=== PATIENT | male | born 1945 | race Hispanic/Latino ===

== ENCOUNTER 2018-06-19 19:57 | Emergency (ER) | payer MEDICARE, OTHER ==
[2018-06-19 21:01] LABS: Absolute Lymphocytes (CBC) 0.9 K/uL (0.7-4.9); Absolute Monocytes 0.5 K/uL (0.1-1.3); Absolute Neutrophil 4.1 K/uL (1.8-8.0); Basophils % 0.4 % (0-1.3); Eosinophils % 2.3 % (0-4.4); Hematocrit 44.4 % (39.6-49.0); Monocytes % 8.7 % (3.3-12.3)
[2018-06-19 21:11] LABS: Protime INR 1.1
[2018-06-19 21:13] LABS: Barbiturates NEGATIVE (NEGATIVE); Benzodiazepines POSITIVE (NEGATIVE); Cocaine NEGATIVE (NEGATIVE); METHAMPHETAM NEGATIVE (NEGATIVE); Methadone NEGATIVE (NEGATIVE); Opiates NEGATIVE (NEGATIVE); Phencyclidine NEGATIVE (NEGATIVE); THC Cannibis NEGATIVE (NEGATIVE)
[2018-06-19 21:38] LABS: ALT/SGPT 19 U/L (12-78); AST/SGOT 37 U/L (15-37); Albumin 3.9 g/dL (3.4-5.0); Alkaline Phosphatase 99 U/L (45-117); BUN Blood Urea Nitrogen 32 mg/dL (7-18); Bicarbonate 26 mmol/L (21-32); Bilirubin Direct 0.2 mg/dL (0-0.2); Bilirubin Total 0.6 mg/dL (0.2-1.0); Glucose Level 122 mg/dL (74-106); Potassium 4.1 mmol/L (3.5-5.1); Protein, Total 7.4 g/dL (6.4-8.2); Sodium Level 143 mmol/L (136-145)
[2018-06-19 21:42] LABS: Urine Blood NEGATIVE (NEG); Urine Glucose NEGATIVE (NEG); Urine Protein 2+ (NEG); Urine Specific Gravity >1.030 (1.005-1.030)
--- NOTE | 2018-06-19 23:24 | EDPHYS ---
Physician Documentation [facility] Name: Demetrius Hassan Age: 73 yrs Sex: Male : 1945 Arrival Date: 06/19/2018 Time: 20:01 Bed 20 Private MD: Ramona Lopez F ED Physician Andrei Tafoya HPI: 06/19 21:00 This 73 yrs old Male presents to ER via Wheelchair with complaints of Psych pm1 Problem. 21:00 The patient presents to the emergency department with Aggressive behavior. Onset: The pm1 symptoms/episode began/occurred 1 year(s) ago. Past psychiatric history: Prior diagnosis: no previous psychiatric diagnosis known, Psychiatric medications include: none, Primary psychiatric physician: the patient does not have a primary psychiatric physician. Associated signs and symptoms: The patient has no apparent associated signs or symptoms. Severity of symptoms: in the emergency department the symptoms have improved Pain is currently a 0 / 10. The patient has experienced similar episodes in the past, multiple times. The patient has not recently seen a physician, the patient's primary care provider is Dr. Lopez. Patient with aggressive behavior in the late afternoon or early evening. Patient reports that sometimes he sees people at those time. Patient is not homicidal or suicidal. Historical: - Allergies: 20:15 No Known Allergies; aj - Home Meds: 20:15 benazepril 20 mg Oral tab 1 tab once daily [Active]; carbidopa-levodopa 25-250 mg Oral aj tab 1 tab 3 times per day [Active]; fenofibrate 130 mg Oral tab 1 cap once daily [Active]; pramipexole 1.5 mg Oral tab 1 tab 3 times per day [Active]; unknown "nerve" medication [Active]; - PMHx: 20:15 Hypertension; left arm weakness; Parkinsons; aj - PSHx: 20:15 Appendectomy; Hernia repair; left Foot; Pelvic Surgery; Left Shoulder; aj - Immunization history:: Adult Immunizations up to date. - Social history:: Smoking status: Patient/guardian denies using tobacco. - Ebola Screening: : Patient negative for fever greater than or equal to 101.5 degrees Fahrenheit, and additional compatible Ebola Virus Disease symptoms Patient denies exposure to infectious person Patient denies travel to an Ebola-affected area in the 21 days before illness onset No symptoms or risks identified at this time. ROS: 21:00 Constitutional: Negative for fever, chills, and weight loss, Eyes: Negative for injury, pm1 pain, redness, and discharge, ENT: Negative for injury, pain, and discharge, Neck: Negative for injury, pain, and swelling, Cardiovascular: Negative for chest pain, palpitations, and edema, Respiratory: Negative for shortness of breath, cough, wheezing, and pleuritic chest pain, Abdomen/GI: Negative for abdominal pain, nausea, vomiting, diarrhea, and constipation, Back: Negative for injury and pain, : Negative for injury, bleeding, discharge, and swelling, MS/Extremity: Negative for injury and deformity, Skin: Negative for injury, rash, and discoloration, Neuro: Negative for headache, weakness, numbness, tingling, and seizure. 21:00 Psych: Positive for visual hallucinations, Negative for anxiety, depression, drug dependence, alcohol dependence, auditory hallucinations, homicidal ideation, insomnia, suicide gesture, suicidal ideation. Exam: 21:00 Constitutional: This is a well developed, well nourished patient who is awake, alert, pm1 and in no acute distress. Head/Face: Normocephalic, atraumatic. Eyes: Pupils equal round and reactive to light, extra-ocular motions intact. Lids and lashes normal. Conjunctiva and sclera are non-icteric and not injected. Cornea within normal limits. Periorbital areas with no swelling, redness, or edema. ENT: Nares patent. No nasal discharge, no septal abnormalities noted. Tympanic membranes are normal and external auditory canals are clear. Oropharynx with no redness, swelling, or masses, exudates, or evidence of obstruction, uvula midline. Mucous membranes moist. Neck: Trachea midline, no thyromegaly or masses palpated, and no cervical lymphadenopathy. Supple, full range of motion without nuchal rigidity, or vertebral point tenderness. No Meningismus. Chest/axilla: Normal chest wall appearance and motion. Nontender with no deformity. No lesions are appreciated. Cardiovascular: Regular rate and rhythm with a normal S1 and S2. No gallops, murmurs, or rubs. Normal PMI, no JVD. No pulse deficits. Respiratory: Lungs have equal breath sounds bilaterally, clear to auscultation and percussion. No rales, rhonchi or wheezes noted. No increased work of breathing, no retractions or nasal flaring. Abdomen/GI: Soft, non-tender, with normal bowel sounds. No distension or tympany. No guarding or rebound. No evidence of tenderness throughout. Back: No spinal tenderness. No costovertebral tenderness. Full range of motion. Skin: Warm, dry with normal turgor. Normal color with no rashes, no lesions, and no evidence of cellulitis. MS/ Extremity: Pulses equal, no cyanosis. Neurovascular intact. Full, normal range of motion. 21:00 Neuro: Orientation: is normal, Motor: moves all fours, Sensation: is normal, no obvious gross deficits. Vital Signs: 20:15 BP 114 / 59; Pulse 73; Resp 20; Temp 97.7; Pulse Ox 97% on R/A; Weight 85.28 kg; Height aj 5 ft. 6 in. (167.64 cm); 21:08 BP 105 / 64; Pulse 72; Resp 18 S; Pulse Ox 97% on R/A; cc3 22:45 BP 101 / 53; Pulse 59; Resp 16 S; Pulse Ox 99% on R/A; cc3 23:15 BP 110 / 55; Pulse 62; Resp 17 S; Pulse Ox 100% on R/A; cc3 20:15 Body Mass Index 30.34 (85.28 kg, 167.64 cm) aj MDM: 20:29 Patient medically screened. pm1 23:22 Data reviewed: vital signs. Data interpreted: Pulse oximetry: on room air is 97 %. pm1 Interpretation: normal. Counseling: I had a detailed discussion with the patient and/or guardian regarding: the historical points, exam findings, and any diagnostic results supporting the discharge/admit diagnosis, lab results, the need for outpatient follow up, to return to the emergency department if symptoms worsen or persist or if there are any questions or concerns that arise at home. 06/19 20:29 Order name: Acetaminophen; Complete Time: 22:06 pm1 06/19 20:29 Order name: Basic Metabolic Panel; Complete Time: 22:06 pm1 06/19 20:29 Order name: CBC with Diff; Complete Time: 22:06 pm1 06/19 20:29 Order name: ETOH Level; Complete Time: 22:06 pm1 06/19 20:29 Order name: Hepatic Function; Complete Time: 22:06 pm1 06/19 20:29 Order name: PT-INR; Complete Time: 22:06 pm1 06/19 20:29 Order name: Ptt, Activated; Complete Time: 22:06 pm1 06/19 20:29 Order name: Salicylate; Complete Time: 22:06 pm1 06/19 20:29 Order name: Urine Drug Screen; Complete Time: 22:06 pm1 06/19 20:29 Order name: EKG; Complete Time: 20:30 pm1 06/19 20:29 Order name: EKG - Nurse/Tech; Complete Time: 20:37 pm1 06/19 20:29 Order name: IV Saline Lock; Complete Time: 20:54 pm1 06/19 20:29 Order name: Labs collected and sent; Complete Time: 20:54 pm1 06/19 20:48 Order name: Urine Dipstick--Ancillary (enter results); Complete Time: 22:06 mw2 06/19 20:29 Order name: Urine Dipstick-Ancillary (obtain specimen); Complete Time: 20:37 pm1 Administered Medications: No medications were administered Disposition: 06/20 07:57 Co-signature as Attending Physician, Andrei Tafoya MD I agree with the assessment and prakash plan of care. Disposition: 06/19/18 23:24 Discharged to Home. 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 - Condition is Stable. - Discharge Instructions: Confusion, Alzheimer Disease Caregiver Guide. - Medication Reconciliation Form, Thank You Letter form. - Follow up: Emergency Department; When: As needed; Reason: Worsening of condition. Follow up: Ramona Lopez MD; When: 2 - 3 days; Reason: Recheck today's complaints, Continuance of care, Re-evaluation by your physician. - Problem is new. - Symptoms have improved. Signatures: Dispatcher [employer] EDLuzma Burgos RN RN aj Anderson, Corey, MD MD cha Marinas, Patrick, TOOL REPAIRER BENCH TOOL REPAIRER BENCH pm1 Kathleen Courtney cc3 Corrections: (The following items were deleted from the chart) 06/19 23:54 23:24 06/19/2018 23:24 Discharged to Home. 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 Condition is Stable. Forms are Medication Reconciliation Form, Thank You Letter, Antibiotic Education, Prescription Opioid Use. Follow up: Emergency Department; When: As needed; Reason: Worsening of condition. Follow up: Ramona Lopez; When: 2 - 3 days; Reason: Recheck today's complaints, Continuance of care, Re-evaluation by your physician. Problem is new. Symptoms have improved. pm1
--- NOTE | 2018-06-19 23:24 | ER ---
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 I aj called the police and they said there is nothing they could do because he didn't hurt anyone and the kind of Parkinson's he has makes him hallucinate. I want him to have a mental health evaluation.". Transition of care: patient was not received from another setting of care. Onset of symptoms was June 19, 2018. Risk Assessment: Do you want to hurt yourself or someone else? Patient reports no desire to harm self or others. Initial Sepsis Screen: Does the patient meet any 2 criteria? No. Patient's initial sepsis screen is negative. Does the patient have a suspected source of infection? No. Patient's initial sepsis screen is negative. Care prior to arrival: None. 20:12 Method Of Arrival: Wheelchair aj 20:12 Acuity: JOHANNA 2 aj Triage Assessment: 20:15 General: Appears in no apparent distress. comfortable, Behavior is calm, cooperative, aj appropriate for age. Pain: Denies pain. Neuro: Level of Consciousness is awake, alert, obeys commands, Oriented to person, place, time, situation, Appropriate for age. Respiratory: Airway is patent Respiratory effort is even, unlabored, Respiratory pattern is regular, symmetrical. : Parent/caregiver report the patient having urinary frequency. Derm: Skin is intact, is healthy with good turgor, Skin is pink, warm \\T\\ dry. normal. Historical: - Allergies: 20:15 No Known Allergies; aj - Home Meds: 20:15 benazepril 20 mg Oral tab 1 tab once daily [Active]; carbidopa-levodopa 25-250 mg Oral aj tab 1 tab 3 times per day [Active]; fenofibrate 130 mg Oral tab 1 cap once daily [Active]; pramipexole 1.5 mg Oral tab 1 tab 3 times per day [Active]; unknown "nerve" medication [Active]; - PMHx: 20:15 Hypertension; left arm weakness; Parkinsons; aj - PSHx: 20:15 Appendectomy; Hernia repair; left Foot; Pelvic Surgery; Left Shoulder; aj - Immunization history:: Adult Immunizations up to date. - Social history:: Smoking status: Patient/guardian denies using tobacco. - Ebola Screening: : Patient negative for fever greater than or equal to 101.5 degrees Fahrenheit, and additional compatible Ebola Virus Disease symptoms Patient denies exposure to infectious person Patient denies travel to an Ebola-affected area in the 21 days before illness onset No symptoms or risks identified at this time. Screenin:20 Abuse screen: Denies threats or abuse. Denies injuries from another. Nutritional cc3 screening: No deficits noted. Tuberculosis screening: No symptoms or risk factors identified. Fall Risk Ambulatory Aid- None/Bed Rest/Nurse Assist (0 pts). Gait- Weak (10 pts.). Mental Status- Overestimates/Forgets Limitations (15 pts.). Assessment: 20:20 General: see triage assessment. cc3 21:08 Reassessment: Patient appears in no apparent distress at this time. Patient and/or cc3 family updated on plan of care and expected duration. Pain level reassessed. Patient is alert, oriented x 3, equal unlabored respirations, skin warm/dry/pink. 22:18 Reassessment: Patient appears in no apparent distress at this time. Patient and/or cc3 family updated on plan of care and expected duration. Pain level reassessed. Patient is alert, oriented x 3, equal unlabored respirations, skin warm/dry/pink. 23:20 Reassessment: Patient appears in no apparent distress at this time. Patient and/or cc3 family updated on plan of care and expected duration. Pain level reassessed. Patient is alert, oriented x 3, equal unlabored respirations, skin warm/dry/pink. 23:35 Reassessment: ARELI Anthony discharged the patient home, no prescription given. IV cannula cc3 removed and patient left ER vitally stable by wheelchair escorted by me and the patient's family. Vital Signs: 20:15 BP 114 / 59; Pulse 73; Resp 20; Temp 97.7; Pulse Ox 97% on R/A; Weight 85.28 kg; Height aj 5 ft. 6 in. (167.64 cm); 21:08 BP 105 / 64; Pulse 72; Resp 18 S; Pulse Ox 97% on R/A; cc3 22:45 BP 101 / 53; Pulse 59; Resp 16 S; Pulse Ox 99% on R/A; cc3 23:15 BP 110 / 55; Pulse 62; Resp 17 S; Pulse Ox 100% on R/A; cc3 20:15 Body Mass Index 30.34 (85.28 kg, 167.64 cm) ED Course: 20:01 Patient arrived in ED. am2 20:01 Ramona Lopez MD is Private Physician. am2 20:14 Triage completed. aj 20:15 Arm band placed on right wrist. Patient placed in an exam room. aj 20:20 Kathleen Courtney is Primary Nurse. cc3 20:20 Patient has correct armband on for positive identification. Placed in gown. Bed in low cc3 position. Call light in reach. Side rails up X2. Pulse ox on. NIBP on. 20:28 Raj Rosen NP is PHCP. pm1 20:28 Andrei Tafoya MD is Attending Physician. pm1 20:45 Inserted saline lock: 20 gauge in right antecubital area, using aseptic technique. cc3 Blood collected. 23:22 Ramona Lopez MD is Referral Physician. pm1 23:35 No provider procedures requiring assistance completed. IV discontinued, intact, cc3 bleeding controlled, No redness/swelling at site. Pressure dressing applied. Administered Medications: No medications were administered Outcome: 23:24 Discharge ordered by . pm1 23:35 Discharged to home via wheelchair, with family. cc3 23:35 Condition: stable 23:35 Discharge instructions given to patient, family, Instructed on discharge instructions, follow up and referral plans. Demonstrated understanding of instructions, follow-up care. 23:54 Patient left the ED. cc3 Signatures: Luzma Hyde, RN RN Raj Jenkins NP MATERIAL PROCESSOR pm1 Luzma Ma am2 Kathleen Courtney cc3
[2018-06-20 01:33] VITALS: TEMP 97.7
[2018-06-20 01:44] VITALS: BP 110/55; O2SAT 100
--- NOTE | 2018-06-20 08:10 | EKG ---
Test Date: 2018-05-19 Test Time: 20:37:27 Visual Communications Instructor: RR MEASUREMENT RESULTS: Intervals: Rate: 73 CO: 184 QRSD: 82 QT: 376 QTc: 414 [place]: P: 50 CO: 184 QRS: -34 T: 3 INTERPRETIVE STATEMENTS: Normal sinus rhythm Left axis deviation Minimal voltage criteria for LVH, may be normal variant Abnormal ECG Compared to ECG 02/23/2017 00:52:22 Left-axis deviation now present Left ventricular hypertrophy now present Electronically Signed On 06-20-18 08:08:43 [employer] DR[employer] by Brant Vega
== END 2018-06-19 23:54 | disposition home or self-care (01) ==
LOC: ER 19:57
DX: R41.0 Disorientation, unspecified (principal); I10 Essential (primary) hypertension; G20 Parkinson's disease
CPT/HCPCS: 36415; 80048; 80076; 80307; 80320; 80329; 81003; 85025; 85610; 85730; 93005; 99284

== ENCOUNTER 2018-08-09 07:31 | Emergency (ER) | payer MEDICARE ==
[2018-08-09 08:22] LABS: Absolute Monocytes 0.7 K/uL (0.1-1.3); Absolute Neutrophil 5.2 K/uL (1.8-8.0); Basophils % 0.3 % (0-1.3); Eosinophils % 2.2 % (0-4.4); Hematocrit 47.4 % (39.6-49.0); Lymphocytes % 13.9 % (15.3-44.8); MPV 7.6 fL (7.6-11.3); Monocytes % 10.1 % (3.3-12.3); RBC Red Blood Cell Count 5.38 M/uL (4.33-5.43)
[2018-08-09 08:34] LABS: Urine Blood NEGATIVE (NEG); Urine Glucose NEGATIVE (NEG); Urine Protein NEGATIVE (NEG); Urine Specific Gravity 1.015 (1.005-1.030); Urine pH 5.5 (5.0-7.0)
[2018-08-09 08:44] LABS: Bilirubin Total 1.1 mg/dL (0.2-1.0); Potassium 4.1 mmol/L (3.5-5.1); Protein, Total 7.8 g/dL (6.4-8.2)
--- NOTE | 2018-08-09 09:18 | RAD REPORT ---
EXAM DESCRIPTION: CT - Chest Abdomen Pelvis W Cont - 08/09/2018 8:56 am CLINICAL HISTORY: Chest and abdominal pain status post fall COMPARISON: CT chest September 22, 2016 TECHNIQUE: Computed axial tomography of the chest, abdomen and pelvis was obtained. 100 cc Isovue-30 0 was administered intravenously. Oral contrast was not requested. This limits evaluation of bowel. All CT scans are performed using dose optimization technique as appropriate and may include automated exposure control or mA/KV adjustment according to patient size. FINDINGS: Minimally displaced fracture involves the right posterior ninth rib. Moderately displaced fracture involves the right posterior tenth rib. Mildly displaced fracture involves right posterior e leventh rib. A small right pleural effusion. Minimal right lower lobe atelectasis. A pneumothorax is not noted. A pulmonary contusion is not seen. A mediastinal hematoma is not present. The liver, spleen, pancreas, adrenals, kidneys and bladder do not demonstrate a traumatic injury. A Hardnig catheter is present within the bladder. Fatty liver. Renal cysts. IVC filter in place. Postsurgical changes involve pelvic bones. Prostate gland is enlarged. Small umbilical hernia IMPRESSION: Mildly to moderately displaced fractures involving the posterior ninth, tenth and eleven th right ribs. A pneumothorax is not seen No acute traumatic injury involving the abdomen/pelvis
[2018-08-09] MEDS ORDERED: ONDANSETRON 4 MG/2 ML VIAL ONE (09:48)
[2018-08-09] MEDS ORDERED: NA CHLORIDE 0.9% 500 ML ONE (09:48)
[2018-08-09] MEDS ORDERED: MORPHINE 4 MG/ML SYR ONE (09:48)
[2018-08-09 09:49] LABS: Urine Bacteria NONE SEEN /HPF (NONE SEEN); Urine Culture Reflex Order NOT NEEDED; Urine RBC NONE SEEN /HPF (NONE SEEN)
--- NOTE | 2018-08-09 10:49 | EDPHYS ---
Physician Documentation [facility] Name: Demetrius Hassan Age: 73 yrs Sex: Male : 1945 Arrival Date: 08/09/2018 Time: 07:37 Bed 8 Private MD: ED Physician Tutu Squires HPI: 08/09 08:27 This 73 yrs old Male presents to ER via EMS with complaints of Fall Injury, pm1 Back Pain. 08:27 Details of fall: The patient fell from an upright position, while walking. Onset: The pm1 symptoms/episode began/occurred yesterday. Associated injuries: The patient sustained right mid back. The patient has not experienced similar symptoms in the past. The patient has not recently seen a physician. Patient was walking and lost his balance due to Parkinson's disease. Landed on right side and reports pain to right flank area. No headache, head injury, neck pain, or LOC. Patient reports inability to urinate since fall injury. No fever. No N/V/D. Historical: - Allergies: 07:41 No Known Allergies; bp - Home Meds: 07:41 benazepril 20 mg Oral tab 1 tab once daily [Active]; carbidopa-levodopa 25-250 mg Oral bp tab 1 tab 3 times per day [Active]; fenofibrate 130 mg Oral tab 1 cap once daily [Active]; pramipexole 1.5 mg Oral tab 1 tab 3 times per day [Active]; - PMHx: 07:41 Hypertension; left arm weakness; Parkinsons; bp - Immunization history:: Adult Immunizations up to date. - Social history:: Smoking status: Patient/guardian denies using tobacco. - Ebola Screening: : Patient negative for fever greater than or equal to 101.5 degrees Fahrenheit, and additional compatible Ebola Virus Disease symptoms Patient denies exposure to infectious person Patient denies travel to an Ebola-affected area in the 21 days before illness onset No symptoms or risks identified at this time. ROS: 08:27 Constitutional: Negative for fever, chills, and weight loss, Eyes: Negative for injury, pm1 pain, redness, and discharge, ENT: Negative for injury, pain, and discharge, Neck: Negative for injury, pain, and swelling, Cardiovascular: Negative for chest pain, palpitations, and edema, Respiratory: Negative for shortness of breath, cough, wheezing, and pleuritic chest pain, Abdomen/GI: Negative for abdominal pain, nausea, vomiting, diarrhea, and constipation. 08:27 MS/Extremity: Negative for injury and deformity, Skin: Negative for injury, rash, and discoloration, Neuro: Negative for headache, weakness, numbness, tingling, and seizure. 08:27 Back: Positive for flank pain, on the right. 08:27 : Positive for difficulty urinating, Negative for penile discharge, penile pain, testicular pain Exam: 08:27 Constitutional: This is a well developed, well nourished patient who is awake, alert, pm1 and in no acute distress. Head/Face: Normocephalic, atraumatic. Eyes: Pupils equal round and reactive to light, extra-ocular motions intact. Lids and lashes normal. Conjunctiva and sclera are non-icteric and not injected. Cornea within normal limits. Periorbital areas with no swelling, redness, or edema. ENT: Nares patent. No nasal discharge, no septal abnormalities noted. Tympanic membranes are normal and external auditory canals are clear. Oropharynx with no redness, swelling, or masses, exudates, or evidence of obstruction, uvula midline. Mucous membranes moist. Neck: Trachea midline, no thyromegaly or masses palpated, and no cervical lymphadenopathy. Supple, full range of motion without nuchal rigidity, or vertebral point tenderness. No Meningismus. Chest/axilla: Normal chest wall appearance and motion. Nontender with no deformity. No lesions are appreciated. Cardiovascular: Regular rate and rhythm with a normal S1 and S2. No gallops, murmurs, or rubs. Normal PMI, no JVD. No pulse deficits. Respiratory: Lungs have equal breath sounds bilaterally, clear to auscultation and percussion. No rales, rhonchi or wheezes noted. No increased work of breathing, no retractions or nasal flaring. Abdomen/GI: Soft, non-tender, with normal bowel sounds. No distension or tympany. No guarding or rebound. No evidence of tenderness throughout. 08:27 Skin: Warm, dry with normal turgor. Normal color with no rashes, no lesions, and no evidence of cellulitis. MS/ Extremity: Pulses equal, no cyanosis. Neurovascular intact. Full, normal range of motion. 08:27 Back: pain, that is moderate, of the right mid back, normal spinal alignment noted, vertebral tenderness, is not appreciated. 08:27 : Bladder: distension, that is mild. 08:27 Neuro: Orientation: is normal, Motor: is normal, moves all fours. Vital Signs: 07:41 BP 190 / 124; Pulse 92; Resp 18; Temp 97.8; Pulse Ox 96% ; Weight 85.28 kg; Height 5 bp ft. 7 in. (170.18 cm); 08:19 BP 151 / 83; Pulse 80; Resp 16; Pulse Ox 97% ; bp 09:00 BP 156 / 59; Pulse 71; Resp 16; Pulse Ox 100% ; bp 10:00 BP 115 / 53; Pulse 55; Resp 14; Pulse Ox 99% ; bp 10:48 BP 97 / 53; Pulse 53; Resp 14; Pulse Ox 98% ; bp 12:00 BP 124 / 74; Pulse 58; Resp 16; Pulse Ox 100% ; bp 07:41 Body Mass Index 29.44 (85.28 kg, 170.18 cm) bp MDM: 07:40 Patient medically screened. pm1 08:27 Data reviewed: vital signs. Data interpreted: Pulse oximetry: on room air is 100 %. pm1 Interpretation: normal. 10:05 Counseling: I had a detailed discussion with the patient and/or guardian regarding: the pm1 historical points, exam findings, and any diagnostic results supporting the discharge/admit diagnosis, lab results, radiology results, the need for further work-up and treatment in the hospital. 10:18 Physician consultation: Ramona Lopez MD was called at 10:19, was contacted at 10:19, pm1 regarding admission, patient's condition. 10:19 Physician consultation: Ramona Lopez MD and will see patient in office, Sunday. pm1 Discussed patient's fall injury with 3 fractured right ribs, right lung atelectasis, right lung pleural effusion, urinary retention due to BPH and need for admission for pain management, incentive spirometry, and evaluation surgery. Dr. Lopez does not want to admit the patient because the patient does not meet admission criteria and he will see the patient in the office on Sunday. 08/09 07:42 Order name: CBC with Diff; Complete Time: 08:25 pm1 08/09 07:42 Order name: CMP; Complete Time: 08:47 pm1 08/09 07:42 Order name: Chest Abdomen Pelvis W Con CT; Complete Time: 09:20 pm1 08/09 07:42 Order name: Creatinine for Radiology; Complete Time: 08:47 pm1 08/09 07:42 Order name: Urine Microscopic Only; Complete Time: 09:50 pm1 08/09 08:14 Order name: Urine Dipstick--Ancillary (enter results); Complete Time: 08:47 eb 08/09 07:42 Order name: Bladder Scanner; Complete Time: 07:50 pm1 08/09 07:42 Order name: IV Saline Lock; Complete Time: 08:14 pm1 08/09 07:42 Order name: Urine Dipstick-Ancillary (obtain specimen); Complete Time: 08:14 pm1 08/09 10:36 Order name: INCENTIVE SPIROMETRY pm1 08/09 10:40 Order name: RC INCENTIVE SPIROMETRY [facility] 08/09 08:04 Order name: Harding; Complete Time: 08:06 pm1 08/09 11:05 Order name: Leg Bag; Complete Time: 12:07 pm1 Administered Medications: 09:30 Drug: morphine 4 mg Route: IVP; Site: right antecubital; bp 12:11 Follow up: Response: Pain is decreased bp 09:30 Drug: Zofran 4 mg Route: IVP; Site: right antecubital; bp 12:11 Follow up: Response: Pain is decreased bp 09:30 Drug: NS 0.9% 500 ml Route: IV; Rate: bolus; Site: right antecubital; bp 12:10 Follow up: IV Status: Completed infusion; IV Intake: 500ml bp Disposition: 15:16 Co-signature as Attending Physician, Tutu Squires MD. rn Disposition: 08/09/18 10:49 Discharged to Home. Impression: Multiple fractures of ribs, right side, Retention of urine, Enlarged prostate, Other slipping, tripping and stumbling and falls, Atelectasis, Pleural effusion, not elsewhere classified. - Condition is Stable. - Discharge Instructions: Atelectasis, Adult, Harding Catheter Care, Adult, Pleural Effusion, Rib Fracture, Acute Urinary Retention, Male, Incentive Spirometer. - Prescriptions for Tylenol- Codeine #3 300-30 mg Oral Tablet - take 2 tablets by ORAL route every 6 hours As needed; 20 tablet. - Medication Reconciliation Form, Thank You Letter, Antibiotic Education, Prescription Opioid Use form. - Follow up: Emergency Department; When: As needed; Reason: Worsening of condition. Follow up: Ramona Lopez MD; When: 3 days; Reason: Recheck today's complaints, Continuance of care, Re-evaluation by your physician. - Problem is new. - Symptoms have improved. Signatures: Dispatcher [employer] EDMS Tutu Squires MD MD rn Raj Rosen HVAC SALES ENGINEER HVAC SALES ENGINEER pm1 Darian Avalos RN RN bp Corrections: (The following items were deleted from the chart) 10:49 10:49 08/09/2018 10:49 Discharged to Home. Impression: Multiple fractures of ribs, pm1 right side; Retention of urine; Enlarged prostate; Other slipping, tripping and stumbling and falls. Condition is Stable. Forms are Medication Reconciliation Form, Thank You Letter, Antibiotic Education, Prescription Opioid Use. Follow up: Emergency Department; When: As needed; Reason: Worsening of condition. Follow up: Ramona Lopez; When: 3 days; Reason: Recheck today's complaints, Continuance of care, Re-evaluation by your physician. Problem is new. Symptoms have improved. pm1 14:18 10:49 08/09/2018 10:49 Discharged to Home. Impression: Multiple fractures of ribs, bp right side; Retention of urine; Enlarged prostate; Other slipping, tripping and stumbling and falls; Atelectasis; Pleural effusion, not elsewhere classified. Condition is Stable. Forms are Medication Reconciliation Form, Thank You Letter, Antibiotic Education, Prescription Opioid Use. Follow up: Emergency Department; When: As needed; Reason: Worsening of condition. Follow up: Ramona Lopez; When: 3 days; Reason: Recheck today's complaints, Continuance of care, Re-evaluation by your physician. Problem is new. Symptoms have improved. pm1
--- NOTE | 2018-08-09 10:49 | ER ---
Nurse's Notes [facility] Name: Demetrius Hassan Age: 73 yrs Sex: Male : 1945 Arrival Date: 08/09/2018 Time: 07:37 Bed 8 Private MD: Diagnosis: Multiple fractures of ribs, right side;Retention of urine;Enlarged prostate;Other slipping, tripping and stumbling and falls;Atelectasis;Pleural effusion, not elsewhere classified Presentation: 08/09 07:39 Presenting complaint: EMS states: FALL Y/D WITH BACK PAIN AND URINARY URGENCY. bp Transition of care: patient was not received from another setting of care. Onset of symptoms was August 08, 2018. Risk Assessment: Do you want to hurt yourself or someone else? Patient reports no desire to harm self or others. Initial Sepsis Screen: Does the patient meet any 2 criteria? No. Patient's initial sepsis screen is negative. Does the patient have a suspected source of infection? No. Patient's initial sepsis screen is negative. Care prior to arrival: None. 07:39 Method Of Arrival: EMS: [facility] bp 07:39 Acuity: JOHANNA 3 bp Triage Assessment: 07:41 General: Appears in no apparent distress. uncomfortable, Behavior is cooperative, bp appropriate for age, anxious. Pain: Complains of pain in low back area. EENT: No deficits noted. Neuro: Level of Consciousness is awake, alert, obeys commands, Oriented to person, place, time, situation, Appropriate for age. Cardiovascular: No deficits noted. Respiratory: Airway is patent Respiratory effort is even, unlabored, Respiratory pattern is regular, symmetrical. GI: No signs and/or symptoms were reported involving the gastrointestinal system. : Reports inability to void, urgency. Derm: No deficits noted. Musculoskeletal: Circulation, motion, and sensation intact. Range of motion: intact in all extremities. Historical: - Allergies: 07:41 No Known Allergies; bp - Home Meds: 07:41 benazepril 20 mg Oral tab 1 tab once daily [Active]; carbidopa-levodopa 25-250 mg Oral bp tab 1 tab 3 times per day [Active]; fenofibrate 130 mg Oral tab 1 cap once daily [Active]; pramipexole 1.5 mg Oral tab 1 tab 3 times per day [Active]; - PMHx: 07:41 Hypertension; left arm weakness; Parkinsons; bp - Immunization history:: Adult Immunizations up to date. - Social history:: Smoking status: Patient/guardian denies using tobacco. - Ebola Screening: : Patient negative for fever greater than or equal to 101.5 degrees Fahrenheit, and additional compatible Ebola Virus Disease symptoms Patient denies exposure to infectious person Patient denies travel to an Ebola-affected area in the 21 days before illness onset No symptoms or risks identified at this time. Screenin:16 Abuse screen: Denies threats or abuse. Denies injuries from another. Nutritional bp screening: No deficits noted. Tuberculosis screening: No symptoms or risk factors identified. Fall Risk Fall in past 12 months (25 points). Secondary diagnosis (15 points) impaired mobility, IV access (20 points). Ambulatory Aid- Crutches/Cane/Walker (15 pts). Gait- Weak (10 pts.). Mental Status- Oriented to own ability (0 pts). Total Andrade Fall Scale indicates High Risk Score (45 or more points). Fall prevention measures have been instituted. Side Rails Up X 2 Placed Close to Nursing Station Frequent Obs/Assessments Occuring As available patient and family educated on Fall Prevention Program and Strategies. Assessment: 07:41 General: SEE TRIAGE NOTE. bp 07:50 Reassessment: BLADDER SCANNER 566ML. bp 10:02 Reassessment: ALL CURRENT ORDERS COMPLETED, MAI PATENT AND DRAINING TO GRAVITY. bp 10:50 Reassessment: PT RESTING QUIETLY, ADMIT IN PROCESS. bp 12:08 Reassessment: ADMIT DECLINED BY PCP. PT D/C HOME WITH LEG BAG. TRANSPORT PENDING. bp 13:34 Reassessment: UNABLE TO D/C VIA W/C VAN, PT UNABLE TO BEAR WEIGHT. AMBULANCE D/C bp PENDING. 14:17 Reassessment: PT BROWN WITH EMS. bp Vital Signs: 07:41 BP 190 / 124; Pulse 92; Resp 18; Temp 97.8; Pulse Ox 96% ; Weight 85.28 kg; Height 5 bp ft. 7 in. (170.18 cm); 08:19 BP 151 / 83; Pulse 80; Resp 16; Pulse Ox 97% ; bp 09:00 BP 156 / 59; Pulse 71; Resp 16; Pulse Ox 100% ; bp 10:00 BP 115 / 53; Pulse 55; Resp 14; Pulse Ox 99% ; bp 10:48 BP 97 / 53; Pulse 53; Resp 14; Pulse Ox 98% ; bp 12:00 BP 124 / 74; Pulse 58; Resp 16; Pulse Ox 100% ; bp 07:41 Body Mass Index 29.44 (85.28 kg, 170.18 cm) bp ED Course: 07:37 Patient arrived in ED. bp 07:40 Triage completed. bp 07:40 Raj Rosen NP is PHCP. pm1 07:40 Tutu Squires MD is Attending Physician. pm1 07:41 Arm band placed on. bp 07:51 Darian Avalos, MARANDA is Primary Nurse. bp 08:05 Mai cath inserted, using sterile technique, 16 Fr., by ms, balloon inflated, to bp gravity drainage, urine specimen collected. returned clear yellow urine. Patient tolerated well. 850 CC INITIAL OUTPUT. Inserted saline lock: 20 gauge in right antecubital area, using aseptic technique. Blood collected. 08:13 Urine collected: Mai catheter specimen, cloudy, kenneth colored. jb1 08:16 Patient has correct armband on for positive identification. Bed in low position. Call bp light in reach. Side rails up X2. 08:57 Chest Abdomen Pelvis W Con CT In Process Unspecified. EDMS 10:47 Ramona Lopez MD is Referral Physician. pm1 12:09 No provider procedures requiring assistance completed. IV discontinued, intact, bp bleeding controlled, No redness/swelling at site. Pressure dressing applied. Administered Medications: 09:30 Drug: morphine 4 mg Route: IVP; Site: right antecubital; bp 12:11 Follow up: Response: Pain is decreased bp 09:30 Drug: Zofran 4 mg Route: IVP; Site: right antecubital; bp 12:11 Follow up: Response: Pain is decreased bp 09:30 Drug: NS 0.9% 500 ml Route: IV; Rate: bolus; Site: right antecubital; bp 12:10 Follow up: IV Status: Completed infusion; IV Intake: 500ml bp Intake: 12:10 IV: 500ml; Total: 500ml. bp Outcome: 10:49 Discharge ordered by . pm1 12:09 Discharged to home bp 12:09 Condition: stable 12:09 Discharge instructions given to patient, Instructed on discharge instructions, follow up and referral plans. medication usage, Demonstrated understanding of instructions, follow-up care, medications, Prescriptions given X 1. 14:18 Patient left the ED. bp Signatures: Dispatcher [employer] EDNikhil Faustin jb1 Raj Rosen, OIL DELIVERER OIL DELIVERER pm1 Darian Avalos, RN RN bp
[2018-08-09 15:09] VITALS: TEMP 97.8
[2018-08-09 15:16] VITALS: BP 124/74; O2SAT 100
== END 2018-08-09 14:18 | disposition home or self-care (01) ==
LOC: ER 07:31
DX: S22.41XA Multiple fractures of ribs, right side, initial encounter for closed fracture (principal); W01.0XXA Fall on same level from slipping, tripping and stumbling without subsequent striking against object, initial encounter; Y93.9 Activity, unspecified; Y92.9 Unspecified place or not applicable; R33.9 Retention of urine, unspecified; N40.0 Benign prostatic hyperplasia without lower urinary tract symptoms; J98.11 Atelectasis; J90 Pleural effusion, not elsewhere classified; I10 Essential (primary) hypertension
CPT/HCPCS: 96361; 85025; 36415; 80053; 71260; 74177; 51702; 96375; 96374; 99284; Q9967; J2405; 81003; 81015

== ENCOUNTER 2018-08-31 10:22 | Emergency (ER) | payer MEDICARE ==
--- OUTSIDE RECORDS SUMMARY | 2018-08-31 10:24 | XMS REPORT ---
:1945 [facility] [address] [place] [address] Dr. Uribe [address] [place] [id number] Care Team Providers Name Role Phone Unavailable Unavailable Unavailable Problems This patient has no known problems. Allergies, Adverse Reactions, Alerts This patient has no known allergies or adverse reactions. Medications This patient has no known medications.
[2018-08-31 11:38] LABS: Albumin 3.8 g/dL (3.4-5.0); Bilirubin Total 0.8 mg/dL (0.2-1.0); Potassium 4.4 mmol/L (3.5-5.1); Protein, Total 8.5 g/dL (6.4-8.2)
[2018-08-31 11:39] LABS: Absolute Monocytes 0.6 K/uL (0.1-1.3); Absolute Neutrophil 7.2 K/uL (1.8-8.0); Basophils % 0.2 % (0-1.3); Eosinophils % 1.9 % (0-4.4); Hematocrit 50.5 % (39.6-49.0); Lymphocytes % 11.1 % (15.3-44.8); MPV 7.5 fL (7.6-11.3); Monocytes % 6.3 % (3.3-12.3); RBC Red Blood Cell Count 5.77 M/uL (4.33-5.43)
--- NOTE | 2018-08-31 11:57 | ER ---
Nurse's Notes [facility] Name: Demetrius Hassan Age: 73 yrs Sex: Male : 1945 Arrival Date: 08/31/2018 Time: 10:30 Bed 14 Private MD: Diagnosis: Urinary tract infection, site not specified;Other mechanical complication of urinary (indwelling) catheter Presentation: 08/31 10:30 Presenting complaint: EMS states: 73 yr. old male, A \T\ O x 4 from home. Pt. lives with rb1 his brother. c/o burning with urination and his Harding catheter is not draining. Denies fever. NKA, History of hypertension, left arm weakness, and Parkinsons. BP 178/78, P 72, R 20, 100% RA. Transition of care: patient was not received from another setting of care. Onset of symptoms was August 31, 2018. Risk Assessment: Do you want to hurt yourself or someone else? Patient reports no desire to harm self or others. Initial Sepsis Screen: Does the patient meet any 2 criteria? No. Patient's initial sepsis screen is negative. Does the patient have a suspected source of infection? No. Patient's initial sepsis screen is negative. Care prior to arrival: None. 10:30 Method Of Arrival: EMS: [facility] 10:30 Acuity: JOHANNA 3 rb1 Triage Assessment: 10:30 General: Appears in no apparent distress. comfortable, Behavior is calm, cooperative, rb1 Denies fever, feeling ill. Pain: Denies pain. Neuro: Level of Consciousness is awake, alert, obeys commands, Oriented to person, place, time, situation, Tremors noted due to Parkinson's. Cardiovascular: Capillary refill < 3 seconds is brisk in bilateral fingers. Respiratory: Airway is patent Respiratory effort is even, unlabored, Respiratory pattern is regular, symmetrical. GI: No signs and/or symptoms were reported involving the gastrointestinal system. : Harding in place to gravity drainage Leg bag has mucous discharge in it; no urine is present at this time. Pt. reports having the same Harding for a month and a half. Derm: Skin is pink, warm \T\ dry. Musculoskeletal: Range of motion: limited in Left arm. Historical: - Allergies: 10:20 No Known Allergies; rb1 - Home Meds: 10:30 carbidopa-levodopa 25-250 mg Oral tab 0.5 tab twice a day [Active]; pramipexole 1.5 mg rb1 oral tab 0.5 tab twice a day [Active]; Nuplazid 17 mg oral tab 1 tabs twice a day [Active]; benazepril 20 mg oral tab 1 tab once daily [Active]; fenofibrate 160 mg oral tab 1 tab once daily [Active]; Slow-Mag 71.5 mg Oral TbEC 1 tab daily [Active]; ziprasidone HCl 20 mg oral cap 1 cap daily [Active]; diazepam 5 mg Oral tab 2 tabs daily [Active]; - PMHx: 10:20 Hypertension; left arm weakness; Parkinsons; rb1 - PSHx: 10:20 left foot; left arm; rb1 - Immunization history:: Adult Immunizations up to date. - Social history:: Smoking status: Patient/guardian denies using tobacco. - Ebola Screening: : Patient negative for fever greater than or equal to 101.5 degrees Fahrenheit, and additional compatible Ebola Virus Disease symptoms. Screenin:30 Abuse screen: Denies threats or abuse. Nutritional screening: No deficits noted. rb1 Tuberculosis screening: No symptoms or risk factors identified. Fall Risk Fall in past 12 months (25 points). No secondary diagnosis (0 pts). No IV (0 pts). Ambulatory Aid- None/Bed Rest/Nurse Assist (0 pts). Gait- Normal/Bed Rest/Wheelchair (0 pts) Mental Status- Oriented to own ability (0 pts). Total Andrade Fall Scale indicates Low Risk Score (25-44 pts). Fall prevention measures have been instituted. Side Rails Up X 2 Placed close to Nursing Station 1:1 attendant Assigned to Pt. Frequent Obs/Assesments occuring As available Patient and Family Educated on Fall Prevention Program and strategies. Assessment: 10:30 General: See triage assessment. rb1 11:30 Reassessment: Patient appears in no apparent distress at this time. No changes from rb1 previously documented assessment. 12:00 Reassessment: Discharge pending due to transportation. Pt. currently eating a meal tray.rb1 12:15 Reassessment: Call Shabbir, pt.brother, at [phone] to inform him that the pt. is rb1 being discharged. 12:30 Reassessment: Patient appears in no apparent distress at this time. Patient and/or rb1 family updated on plan of care and expected duration. Pain level reassessed. Patient is alert, oriented x 3, equal unlabored respirations, skin warm/dry/pink. Pt. continues to wait for EMS. 12:49 Reassessment: Continue to wait for EMS for transportation. rb1 13:15 Reassessment: Patient appears in no apparent distress at this time. No changes from [facility] previously documented assessment. Vital Signs: 10:30 BP 159 / 88; Pulse 68; Resp 15; Temp 97.8(O); Pulse Ox 100% on R/A; Weight 85.28 kg rb1 (R); Height 5 ft. 7 in. (170.18 cm) (R); Pain 0/10; 11:30 BP 127 / 75; Pulse 64; Resp 14; Pulse Ox 100% on R/A; rb1 12:00 BP 138 / 79; Pulse 66; Resp 18; Pulse Ox 100% on R/A; Pain 0/10; rb1 10:30 Body Mass Index 29.44 (85.28 kg, 170.18 cm) [facility] ED Course: 10:30 Patient arrived in ED. em1 10:30 Adán Noble PA is PHCP. [facility] 10:30 Tip Arana MD is Attending Physician. [facility] 10:30 Sara Wilhelm, RN is Primary Nurse. rb1 10:30 Arm band placed on right wrist. rb1 10:30 Patient has correct armband on for positive identification. Placed in gown. Bed in low rb1 position. Call light in reach. Side rails up X2. Pulse ox on. NIBP on. Warm blanket given. 10:49 Triage completed. rb1 11:11 Urine Culture Sent. mh5 11:11 Urine Dipstick--Ancillary (enter results) Sent. mh5 11:14 Inserted saline lock: 20 gauge antecubital area, using aseptic technique. kj1 11:15 Initial lab(s) drawn, by me, sent to lab. kj1 11:15 Harding cath inserted, using sterile technique, 16 Fr., by me, balloon inflated, urine kj1 specimen collected. Harding cath. 12:10 No provider procedures requiring assistance completed. IV discontinued, intact, rb1 bleeding controlled, No redness/swelling at site. Pressure dressing applied. Administered Medications: 12:00 Drug: Augmentin 875 mg Route: PO; rb1 12:40 Follow up: Response: No adverse reaction rb1 Outcome: 11:56 Discharge ordered by . karen 13:20 Patient left the ED. rb1 13:20 Discharged to home via ambulance. rb1 13:20 Condition: stable 13:20 Discharge instructions given to patient, Instructed on discharge instructions, follow up and referral plans. Demonstrated understanding of instructions, follow-up care. Addendum: 09/02/2018 07:29 Addendum: Culture Results: Positive urine culture. No further action required. Bacteria i w sensitive to prescribed antibiotic. Signatures: Adán Noble PA PA jmm Williams, Irene, Nick Rivero RN em1 Sara Wilhelm RN RN Katie Trujillo Mariajose Doyle kj1
--- NOTE | 2018-08-31 11:57 | EDPHYS ---
Physician Documentation [facility] Name: Demetrius Hassan Age: 73 yrs Sex: Male : 1945 Arrival Date: 08/31/2018 Time: 10:30 Bed 14 Private MD: ED Physician Tip Arana HPI: 08/31 10:31 This 73 yrs old Male presents to ER via Unassigned with complaints of Painful jmm urination. 10:31 The patient presents with urinary symptoms, dysuria. Onset: The symptoms/episode jmm began/occurred yesterday. This is a 73 year old male that presents to the ED with complaints of painful urination. Patient states he had a Miller catheter inserted 1 month ago due to enlarged prostate and still awaiting to visit with urology. group home has also reported decreased urinary output. Patient denies fever, denies chills, denies vomiting, denies abdominal pain. . Historical: - Allergies: 10:20 No Known Allergies; rb1 - Home Meds: 10:30 carbidopa-levodopa 25-250 mg Oral tab 0.5 tab twice a day [Active]; pramipexole 1.5 mg rb1 oral tab 0.5 tab twice a day [Active]; Nuplazid 17 mg oral tab 1 tabs twice a day [Active]; benazepril 20 mg oral tab 1 tab once daily [Active]; fenofibrate 160 mg oral tab 1 tab once daily [Active]; Slow-Mag 71.5 mg Oral TbEC 1 tab daily [Active]; ziprasidone HCl 20 mg oral cap 1 cap daily [Active]; diazepam 5 mg Oral tab 2 tabs daily [Active]; - PMHx: 10:20 Hypertension; left arm weakness; Parkinsons; rb1 - PSHx: 10:20 left foot; left arm; rb1 - Immunization history:: Adult Immunizations up to date. - Social history:: Smoking status: Patient/guardian denies using tobacco. - Ebola Screening: : Patient negative for fever greater than or equal to 101.5 degrees Fahrenheit, and additional compatible Ebola Virus Disease symptoms. ROS: 10:31 Constitutional: Negative for fever, chills, and weight loss, Cardiovascular: Negative jmm for chest pain, palpitations, and edema, Respiratory: Negative for shortness of breath, cough, wheezing, and pleuritic chest pain, Abdomen/GI: Negative for abdominal pain, nausea, vomiting, diarrhea, and constipation. 10:31 : Positive for urinary symptoms. 10:31 All other systems are negative. Exam: 10:31 Constitutional: This is a well developed, well nourished patient who is awake, alert, jmm and in no acute distress. Head/Face: atraumatic. Eyes: EOMI, no conjunctival erythema appreciated ENT: Moist Mucus Membranes Neck: Trachea midline, Supple Chest/axilla: Normal chest wall appearance and motion. Cardiovascular: Regular rate and rhythm. No edema appreciated Respiratory: Normal respirations, no respiratory distress appreciated Abdomen/GI: Non distended, soft 10:31 : a miller is noted. 10:31 Musculoskeletal/extremity: no edema noted ot the lower extremities bilaterally. 10:31 Skin: Appearance: Color: normal in color. 10:31 Neuro: Orientation: is normal, Mentation: is normal, Memory: is normal. 10:31 Psych: Behavior/mood is pleasant, cooperative. Vital Signs: 10:30 BP 159 / 88; Pulse 68; Resp 15; Temp 97.8(O); Pulse Ox 100% on R/A; Weight 85.28 kg rb1 (R); Height 5 ft. 7 in. (170.18 cm) (R); Pain 0/10; 11:30 BP 127 / 75; Pulse 64; Resp 14; Pulse Ox 100% on R/A; rb1 12:00 BP 138 / 79; Pulse 66; Resp 18; Pulse Ox 100% on R/A; Pain 0/10; rb1 10:30 Body Mass Index 29.44 (85.28 kg, 170.18 cm) rb1 MDM: 10:30 Patient medically screened. [facility] 11:53 Data reviewed: vital signs, nurses notes. Counseling: I had a detailed discussion with [facility] the patient and/or guardian regarding: the historical points, exam findings, and any diagnostic results supporting the discharge/admit diagnosis, the need for outpatient follow up, to return to the emergency department if symptoms worsen or persist or if there are any questions or concerns that arise at home. ED course: Patient is alert and non toxic in appearance in the ED. Miller replaced and has drained approx 300 ml in the ED. CBC, CMP WNL. Patient is prescribed oral antibiotics and advised to return to the ED if he develops vomiting, abdominal pain, fever, ect. Patient understood and agrees with the plan of care. . 08/31 10:30 Order name: CBC with Diff; Complete Time: 11:48 [facility] 08/31 10:30 Order name: CMP; Complete Time: 11:48 [facility] 08/31 10:30 Order name: Urine Culture [facility] 08/31 11:05 Order name: Urine Dipstick--Ancillary (enter results) em1 08/31 11:14 Order name: Diet Regular; Complete Time: 11:14 rb1 08/31 10:30 Order name: Saline Lock; Complete Time: 11:33 [facility] 08/31 10:30 Order name: Urine Dipstick-Ancillary (obtain specimen); Complete Time: 11:04 [facility] 08/31 12:14 Order name: Miller; Complete Time: 12:14 rb1 Administered Medications: 12:00 Drug: Augmentin 875 mg Route: PO; rb1 12:40 Follow up: Response: No adverse reaction rb1 Disposition: 16:25 Co-signature as Attending Physician, Tip Arana MD I agree with the assessment and kdr plan of care. Disposition: 08/31/18 11:56 Discharged to Home. Impression: Urinary tract infection, site not specified, Other mechanical complication of urinary (indwelling) catheter. - Condition is Stable. - Discharge Instructions: Miller Catheter Care, Adult, Urinary Tract Infection, Adult. - Prescriptions for Augmentin 875- 125 mg Oral Tablet - take 1 tablet by ORAL route every 12 hours for 10 days; 20 tablet. - Medication Reconciliation Form, Thank You Letter, Antibiotic Education, Prescription Opioid Use form. - Follow up: Private Physician; When: 2 - 3 days; Reason: Recheck today's complaints, Continuance of care, Re-evaluation by your physician. Signatures: Dispatcher [employer] EDMS Tip Arana MD MD kdr Mickail, Joel, PA PA jmm Barber, Rebecca, RN RN rb1 Corrections: (The following items were deleted from the chart) 13:20 11:56 08/31/2018 11:56 Discharged to Home. Impression: Urinary tract infection, site rb1 not specified; Other mechanical complication of urinary (indwelling) catheter. Condition is Stable. Forms are Medication Reconciliation Form, Thank You Letter, Antibiotic Education, Prescription Opioid Use. Follow up: Private Physician; When: 2 - 3 days; Reason: Recheck today's complaints, Continuance of care, Re-evaluation by your physician. karen
[2018-08-31] MEDS ORDERED: AMOX/K CLAV 875 MG TAB ONE (12:13)
[2018-08-31 13:27] VITALS: TEMP 97.8; O2SAT 100
[2018-08-31 13:29] VITALS: BP 138/79
[2018-08-31 20:09] LABS: Urine Blood 3+ (NEG); Urine Glucose NEGATIVE (NEG); Urine Protein 3+ (NEG); Urine Specific Gravity 1.015 (1.005-1.030); Urine pH 8.5 (5.0-7.0)
== END 2018-08-31 13:20 | disposition home or self-care (01) ==
LOC: ER 10:22
DX: T83.098A Other mechanical complication of other urinary catheter, initial encounter (principal); R30.0 Dysuria; I10 Essential (primary) hypertension; G20 Parkinson's disease; N39.0 Urinary tract infection, site not specified
CPT/HCPCS: 36415; 51702; 80053; 81003; 85025; 87077; 87086; 87088; 87186; 99284

== ENCOUNTER 2018-10-02 13:03 | Emergency (ER) | payer MEDICARE ==
--- OUTSIDE RECORDS SUMMARY | 2018-10-02 14:03 | XMS REPORT ---
:1945 [facility] Address [address] [place] [address] Dr. Cortes[address] [place] [id number] Care Team Providers Name Role Phone Unavailable Unavailable Unavailable Problems This patient has no known problems. Allergies, Adverse Reactions, Alerts This patient has no known allergies or adverse reactions. Medications This patient has no known medications.
[2018-10-02 14:26] LABS: Urine Bacteria >50 /HPF (NONE SEEN); Urine Culture Reflex Order REFLEXED; Urine RBC >50 /HPF (NONE SEEN)
--- NOTE | 2018-10-02 14:34 | EDPHYS ---
Physician Documentation [facility] Name: Demetrius Hassan Age: 73 yrs Sex: Male : 1945 Arrival Date: 10/02/2018 Time: 13:09 Bed 16 Private MD: ED Physician Tutu Squires HPI: 10/02 14:21 This 73 yrs old Male presents to ER via EMS with complaints of problem with pm1 miller catheter. 14:21 The patient presents with urinary symptoms, Patient believes that the Miller catheter pm1 might be clogged because urine is leaking around the catheter. Patient reports burning at the urinary meatus. Onset: The symptoms/episode began/occurred today. Modifying factors: The symptoms are alleviated by nothing, the symptoms are aggravated by nothing. Associated signs and symptoms: Pertinent negatives: abdominal pain, constipation, diarrhea, fever, vomiting. The patient has experienced similar episodes in the past, a few times. The patient has not recently seen a physician. Historical: - Allergies: 14:18 No Known Allergies; tw2 - Home Meds: 14:18 benazepril 20 mg Oral tab 1 tab once daily [Active]; carbidopa-levodopa 25-250 mg Oral tw2 tab 0.5 tab twice a day [Active]; diazepam 5 mg Oral tab 2 tabs daily [Active]; fenofibrate 160 mg Oral tab 1 tab once daily [Active]; Nuplazid 17 mg Oral tab 1 tabs twice a day [Active]; pramipexole 1.5 mg Oral tab 0.5 tab twice a day [Active]; Slow-Mag 71.5 mg Oral TbEC 1 tab daily [Active]; ziprasidone HCl 20 mg Oral cap 1 cap daily [Active]; - PMHx: 14:18 Parkinsons; left arm weakness; Hypertension; tw2 - PSHx: 14:18 left foot; left arm; tw2 - Immunization history:: Adult Immunizations. - Social history:: Patient uses Smoking status: . - Ebola Screening: : Patient denies travel to an Ebola-affected area in the 21 days before illness onset. ROS: 14:21 Constitutional: Negative for fever, chills, and weight loss, Eyes: Negative for injury, pm1 pain, redness, and discharge, ENT: Negative for injury, pain, and discharge, Neck: Negative for injury, pain, and swelling, Cardiovascular: Negative for chest pain, palpitations, and edema, Respiratory: Negative for shortness of breath, cough, wheezing, and pleuritic chest pain, Abdomen/GI: Negative for abdominal pain, nausea, vomiting, diarrhea, and constipation, Back: Negative for injury and pain, MS/Extremity: Negative for injury and deformity, Skin: Negative for injury, rash, and discoloration, Neuro: Negative for headache, weakness, numbness, tingling, and seizure. 14:21 : Positive for burning with urination, leaking of urine around the catheter, Negative for flank pain. Exam: 14:25 Constitutional: This is a well developed, well nourished patient who is awake, alert, pm1 and in no acute distress. Head/Face: Normocephalic, atraumatic. Eyes: Pupils equal round and reactive to light, extra-ocular motions intact. Lids and lashes normal. Conjunctiva and sclera are non-icteric and not injected. Cornea within normal limits. Periorbital areas with no swelling, redness, or edema. ENT: Nares patent. No nasal discharge, no septal abnormalities noted. Tympanic membranes are normal and external auditory canals are clear. Oropharynx with no redness, swelling, or masses, exudates, or evidence of obstruction, uvula midline. Mucous membranes moist. Neck: Trachea midline, no thyromegaly or masses palpated, and no cervical lymphadenopathy. Supple, full range of motion without nuchal rigidity, or vertebral point tenderness. No Meningismus. Chest/axilla: Normal chest wall appearance and motion. Nontender with no deformity. No lesions are appreciated. Cardiovascular: Regular rate and rhythm with a normal S1 and S2. No gallops, murmurs, or rubs. Normal PMI, no JVD. No pulse deficits. Respiratory: Lungs have equal breath sounds bilaterally, clear to auscultation and percussion. No rales, rhonchi or wheezes noted. No increased work of breathing, no retractions or nasal flaring. Abdomen/GI: Soft, non-tender, with normal bowel sounds. No distension or tympany. No guarding or rebound. No evidence of tenderness throughout. Back: No spinal tenderness. No costovertebral tenderness. Full range of motion. 14:25 Skin: Warm, dry with normal turgor. Normal color with no rashes, no lesions, and no evidence of cellulitis. MS/ Extremity: Pulses equal, no cyanosis. Neurovascular intact. Full, normal range of motion. 14:25 : Male external genitalia: urine present leaking around catheter, Bladder: is normal, non-distended, non-tender. 14:25 Neuro: Orientation: is normal, Mentation: is normal, Motor: moves all fours. Vital Signs: 13:13 BP 122 / 67; Pulse 61; Resp 18; Temp 97.1; Pulse Ox 97% on R/A; Weight 85.28 kg; Height aj1 69 in. (175.26 cm); 14:07 BP 120 / 84; Pulse 65; Resp 20; Temp 97.6(TE); Pulse Ox 97% on R/A; mh5 15:02 BP 105 / 65; Pulse 65; Resp 17; Pulse Ox 97% on R/A; tw2 13:13 Body Mass Index 27.76 (85.28 kg, 175.26 cm) aj1 MDM: 13:14 Patient medically screened. pm1 14:31 Data reviewed: vital signs. Data interpreted: Pulse oximetry: on room air is 97 %. pm1 Interpretation: normal. Counseling: I had a detailed discussion with the patient and/or guardian regarding: the historical points, exam findings, and any diagnostic results supporting the discharge/admit diagnosis, lab results, the need for outpatient follow up, to return to the emergency department if symptoms worsen or persist or if there are any questions or concerns that arise at home. 10/02 13:14 Order name: Urine Microscopic Only; Complete Time: 14:31 pm1 10/02 14:27 Order name: Urine Culture [facility] 10/02 13:14 Order name: Miller; Complete Time: 14:07 pm1 10/02 13:14 Order name: Bladder Scanner; Complete Time: 13:43 pm1 Administered Medications: 14:44 Drug: Rocephin (cefTRIAXone) 1 grams Route: IM; Site: left deltoid; tw2 15:03 Follow up: Response: No adverse reaction tw2 Disposition: 16:31 Co-signature as Attending Physician, Tutu Squires MD. rn Disposition: 10/02/18 14:34 Discharged to Home. Impression: Other mechanical complication of urinary (indwelling) catheter, Urinary tract infection, site not specified. - Condition is Stable. - Discharge Instructions: Miller Catheter Care, Adult, Urinary Tract Infection, Adult. - Prescriptions for Bactrim DS 800- 160 mg Oral Tablet - take 1 tablet by ORAL route every 12 hours for 10 days; 20 tablet. - Medication Reconciliation Form, Thank You Letter, Antibiotic Education, Prescription Opioid Use form. - Follow up: Emergency Department; When: As needed; Reason: Worsening of condition. Follow up: Private Physician; When: 2 - 3 days; Reason: Recheck today's complaints, Continuance of care, Re-evaluation by your physician. - Problem is new. - Symptoms have improved. Signatures: Dispatcher [employer] EDMS Tutu Squires MD MD rn Marinas, Patrick, NP ASSEMBLER ARRANGER pm1 Latasha Clemons RN RN tw2 Corrections: (The following items were deleted from the chart) 14:36 14:34 10/02/2018 14:34 Discharged to Home. Impression: Urinary tract infection, site pm1 not specified; Encounter for fitting and adjustment of urinary device. Condition is Stable. Forms are Medication Reconciliation Form, Thank You Letter, Antibiotic Education, Prescription Opioid Use. Follow up: Emergency Department; When: As needed; Reason: Worsening of condition. Follow up: Private Physician; When: 2 - 3 days; Reason: Recheck today's complaints, Continuance of care, Re-evaluation by your physician. Problem is new. Symptoms have improved. pm1 14:47 13:14 Urine Dipstick-Ancillary ordered. pm1 tw2 15:03 14:36 10/02/2018 14:34 Discharged to Home. Impression: Other mechanical complication of tw2 urinary (indwelling) catheterUrinary tract infection, site not specified. Condition is Stable. Discharge Instructions: Miller Catheter Care, Adult, Urinary Tract Infection, Adult. Prescriptions for Augmentin 875-125 mg Oral Tablet - take 1 tablet by ORAL route every 12 hours for 10 days; 20 tablet. and Forms are Medication Reconciliation Form, Thank You Letter, Antibiotic Education, Prescription Opioid Use. Follow up: Emergency Department; When: As needed; Reason: Worsening of condition. Follow up: Private Physician; When: 2 - 3 days; Reason: Recheck today's complaints, Continuance of care, Re-evaluation by your physician. Problem is new. Symptoms have improved. pm1
--- NOTE | 2018-10-02 14:34 | ER ---
Nurse's Notes [facility] Name: Demetrius Hassan Age: 73 yrs Sex: Male : 1945 Arrival Date: 10/02/2018 Time: 13:09 Bed 16 Private MD: Diagnosis: Urinary tract infection, site not specified;Other mechanical complication of urinary (indwelling) catheter Presentation: 10/02 13:10 Presenting complaint: Patient states: clogged mai. Transition of care: patient was ss not received from another setting of care. Onset of symptoms is unknown. Risk Assessment: Do you want to hurt yourself or someone else? Patient reports no desire to harm self or others. Initial Sepsis Screen: Does the patient meet any 2 criteria? No. Patient's initial sepsis screen is negative. Does the patient have a suspected source of infection? No. Patient's initial sepsis screen is negative. Care prior to arrival: None. 13:10 Method Of Arrival: EMS: [facility] ss 13:10 Acuity: JOHANNA 3 ss Historical: - Allergies: 14:18 No Known Allergies; tw2 - Home Meds: 14:18 benazepril 20 mg Oral tab 1 tab once daily [Active]; carbidopa-levodopa 25-250 mg Oral tw2 tab 0.5 tab twice a day [Active]; diazepam 5 mg Oral tab 2 tabs daily [Active]; fenofibrate 160 mg Oral tab 1 tab once daily [Active]; Nuplazid 17 mg Oral tab 1 tabs twice a day [Active]; pramipexole 1.5 mg Oral tab 0.5 tab twice a day [Active]; Slow-Mag 71.5 mg Oral TbEC 1 tab daily [Active]; ziprasidone HCl 20 mg Oral cap 1 cap daily [Active]; - PMHx: 14:18 Parkinsons; left arm weakness; Hypertension; tw2 - PSHx: 14:18 left foot; left arm; tw2 - Immunization history:: Adult Immunizations. - Social history:: Patient uses Smoking status: . - Ebola Screening: : Patient denies travel to an Ebola-affected area in the 21 days before illness onset. Screenin:16 Abuse screen: Denies threats or abuse. Nutritional screening: No deficits noted. tw2 Tuberculosis screening: No symptoms or risk factors identified. Fall Risk Secondary diagnosis (15 points) impaired mobility. Assessment: 13:10 General: Appears in no apparent distress. unkempt, Behavior is cooperative, appropriate tw2 for age, Smells of urine. Pain: Denies pain. Neuro: Level of Consciousness is awake, alert, obeys commands, Oriented to person, situation. Cardiovascular: Heart tones S1 S2 Patient's skin is warm and dry. Respiratory: Airway is patent Respiratory effort is even, unlabored, Respiratory pattern is regular, symmetrical, Breath sounds are clear bilaterally. Respiratory:. GI: No signs and/or symptoms were reported involving the gastrointestinal system. : Reports mai catheter leaking, mai in place upon arrival, noted cloudy dark urine in mai bag and pts brief was saturated with urine. EENT: No signs and/or symptoms were reported regarding the EENT system. Derm: No signs and/or symptoms reported regarding the dermatologic system. Musculoskeletal: Range of motion: limited in left hip, left knee, right hip and right knee. 13:45 Reassessment: mai catheter in place removed, balloon intact, pt tolerated well. tw2 Russel Carrasco served as supervisor cytology, pts adeel-area was cleaned at this time. 14:12 Reassessment: Patient appears in no apparent distress at this time. No changes from tw2 previously documented assessment. Patient and/or family updated on plan of care and expected duration. Pain level reassessed. Patient is alert, oriented x 3, equal unlabored respirations, skin warm/dry/pink. 15:02 Reassessment: Patient appears in no apparent distress at this time. No changes from tw2 previously documented assessment. Patient and/or family updated on plan of care and expected duration. Pain level reassessed. Patient is alert, oriented x 3, equal unlabored respirations, skin warm/dry/pink. Vital Signs: 13:13 BP 122 / 67; Pulse 61; Resp 18; Temp 97.1; Pulse Ox 97% on R/A; Weight 85.28 kg; Height aj1 69 in. (175.26 cm); 14:07 BP 120 / 84; Pulse 65; Resp 20; Temp 97.6(TE); Pulse Ox 97% on R/A; mh5 15:02 BP 105 / 65; Pulse 65; Resp 17; Pulse Ox 97% on R/A; tw2 13:13 Body Mass Index 27.76 (85.28 kg, 175.26 cm) aj1 ED Course: 13:09 Patient arrived in ED. aj1 13:10 Arm band placed on right wrist. 13:10 Bed in low position. Call light in reach. Side rails up X2. Pulse ox on. NIBP on. Warm tw2 blanket given. 13:11 Raj Rosen NP is PHCP. pm1 13:11 Tutu Squires MD is Attending Physician. pm1 13:12 Triage completed. 13:13 Latasha Clemons, RN is Primary Nurse. tw2 13:50 Mai cath inserted, using sterile technique, 18 Fr., by me, balloon inflated, to tw2 gravity drainage, urine specimen collected. other 18 fr coude catheter used, Russel Carrasco served as supervisor cytology. 14:47 Awaiting transportation. tw2 15:02 No provider procedures requiring assistance completed. Patient did not have IV access tw2 during this emergency room visit. Administered Medications: 14:44 Drug: Rocephin (cefTRIAXone) 1 grams Route: IM; Site: left deltoid; tw2 15:03 Follow up: Response: No adverse reaction tw2 Outcome: 14:34 Discharge ordered by MD. pm1 15:02 Discharged to home via ambulance. tw2 15:02 Discharged to home with 18fr MAI CATHETER IN PLACE 15:02 Condition: stable 15:02 Discharge instructions given to patient, Instructed on discharge instructions, follow up and referral plans. medication usage, mai care Demonstrated understanding of instructions, follow-up care, medications, Prescriptions given X 1. 15:03 Patient left the ED. tw2 Addendum: 10/05/2018 07:31 Addendum: Culture Results: Positive urine culture. No further action required. Bacteria i w sensitive to prescribed antibiotic. Signatures: Sona Rice RN RN aj1 Lisa Jason RN RN Madyson Morales RN RN Raj Rosen NP SEX THERAPIST pm1 Latasha Clmeons RN RN tw2 Katie Irizarry 5 Corrections: (The following items were deleted from the chart) 10/02 14:15 13:50 Mai cath inserted, using sterile technique, 18 Fr., by me, balloon inflated, to tw2 gravity drainage, urine specimen collected. other 18 fr coude tip tw2 14:16 13:45 Reassessment: mai catheter in place removed, balloon intact, pt tolerated well. tw2 Luna[employer] served as supervisor cytology tw2
[2018-10-02] MEDS ORDERED: CEFTRIAXONE 1000 MG/VIAL ONE (14:50)
[2018-10-02] MEDS ORDERED: WATER FOR INJ,STERILE 10 ML ONE (14:50)
[2018-10-02 17:40] VITALS: O2SAT 97
[2018-10-02 17:42] VITALS: TEMP 97.6
[2018-10-02 17:43] VITALS: BP 105/65
== END 2018-10-02 15:03 | disposition home or self-care (01) ==
LOC: ER 13:03
DX: N39.0 Urinary tract infection, site not specified (principal); T83.098A Other mechanical complication of other urinary catheter, initial encounter; I10 Essential (primary) hypertension; G20 Parkinson's disease
CPT/HCPCS: 51702; 81015; 87077; 87086; 87088; 87186; 96372; 99284

== ENCOUNTER 2018-10-10 00:33 | Emergency (ER) | payer MEDICARE ==
--- NOTE | 2018-10-10 01:20 | ER ---
Nurse's Notes [facility] Name: Demetrius Hassan Age: 73 yrs Sex: Male : 1945 Arrival Date: 10/10/2018 Time: 00:34 Bed 6 Private MD: Diagnosis: Retention of urine, unspecified Presentation: 10/10 00:35 Presenting complaint: EMS states: He had his miller removed two days ago and hasn't been ed1 able to have a full stream of urine since, just trickling. Transition of care: patient was not received from another setting of care. Onset of symptoms was October 10, 2018. Risk Assessment: Do you want to hurt yourself or someone else? Patient reports no desire to harm self or others. Initial Sepsis Screen: Does the patient meet any 2 criteria? No. Patient's initial sepsis screen is negative. Does the patient have a suspected source of infection? No. Patient's initial sepsis screen is negative. Care prior to arrival: None. 00:35 Method Of Arrival: EMS: [facility] ed1 00:35 Acuity: JOHANNA 3 ed1 Triage Assessment: 00:40 General: Appears uncomfortable, Behavior is fussy. Pain: Complains of pain in ed1 suprapubic area Pain currently is 10 out of 10 on a pain scale. EENT: No signs and/or symptoms were reported regarding the EENT system. Neuro: Level of Consciousness is awake, alert, obeys commands, Oriented to person, place, time, situation. Cardiovascular: Denies chest pain, Heart tones S1 S2 present. Respiratory: Airway is patent Respiratory effort is even, unlabored, Respiratory pattern is regular, symmetrical, Breath sounds are clear bilaterally. GI: Abdomen is non-distended, Bowel sounds present X 4 quads. : Reports inability to void, since miller removal two days ago. Derm: Skin is intact, is healthy with good turgor, Skin is diaphoretic, Skin is normal, Skin temperature is warm. Musculoskeletal: Circulation, motion, and sensation intact. Historical: - Allergies: 00:40 No Known Allergies; ed1 - Home Meds: 00:40 benazepril 20 mg Oral tab 1 tab once daily [Active]; carbidopa-levodopa 25-250 mg Oral ed1 tab 0.5 tab twice a day [Active]; diazepam 5 mg Oral tab 2 tabs nightly [Active]; fenofibrate 160 mg Oral tab 1 tab once daily [Active]; Nuplazid 17 mg Oral tab 1 tabs twice a day [Active]; pramipexole 1.5 mg Oral tab 0.5 tab twice a day [Active]; Slow-Mag 71.5 mg Oral TbEC 1 tab daily [Active]; ziprasidone HCl 20 mg Oral cap 1 cap daily [Active]; - PMHx: 00:40 Hypertension; left arm weakness; Parkinsons; ed1 - PSHx: 00:40 left foot; left arm; ed1 - Immunization history:: Adult Immunizations up to date. - Social history:: Smoking status: Patient/guardian denies using tobacco. - Ebola Screening: : Patient negative for fever greater than or equal to 101.5 degrees Fahrenheit, and additional compatible Ebola Virus Disease symptoms Patient denies exposure to infectious person Patient denies travel to an Ebola-affected area in the 21 days before illness onset No symptoms or risks identified at this time. - Family history:: not pertinent. - Hospitalizations: : No recent hospitalization is reported. Screenin:42 Abuse screen: Denies threats or abuse. Denies injuries from another. Nutritional ed1 screening: No deficits noted. Tuberculosis screening: No symptoms or risk factors identified. Fall Risk Fall in past 12 months (25 points). Secondary diagnosis (15 points) impaired mobility, No IV (0 pts). Ambulatory Aid- None/Bed Rest/Nurse Assist (0 pts). Gait- Impaired (20 pts.). Mental Status- Oriented to own ability (0 pts). Total Andrade Fall Scale indicates High Risk Score (45 or more points). Fall prevention measures have been instituted. Side Rails Up X 2 Placed Close to Nursing Station Frequent Obs/Assessments Occuring As available patient and family educated on Fall Prevention Program and Strategies. Assessment: 00:42 General: See triage assessment. ed1 01:13 Reassessment: Patient and/or family updated on plan of care and expected duration. Pain ed1 level reassessed. Patient is alert, oriented x 3, equal unlabored respirations, skin warm/dry/pink. Patient states feeling better. Patient states symptoms have improved. 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 Vital Signs: 00:40 BP 173 / 79; Pulse 103; Resp 24; Temp 98.9(TE); Pulse Ox 96% on R/A; Weight 85.28 kg; ed1 Height 5 ft. 8 in. (172.72 cm); Pain 10/10; 01:13 BP 165 / 78; Pulse 94; Resp 18; Pulse Ox 99% on R/A; Pain 4/10; ed1 00:40 Body Mass Index 28.59 (85.28 kg, 172.72 cm) ed1 ED Course: 00:34 Patient arrived in ED. ed1 00:36 Meghan Villaseñor FNP-C is PHCP. snw 00:36 Tutu Squires MD is Attending Physician. snw 00:37 Triage completed. ed1 00:40 Arm band placed on. ed1 00:42 Patient has correct armband on for positive identification. Placed in gown. Bed in low ed1 position. Call light in reach. Side rails up X2. Pulse ox on. NIBP on. 01:03 Kenya Gasca, RN is Primary Nurse. ed1 01:03 Coud inserted, using sterile technique, 16 Fr. Returned clear yellow urine. To gravity ed1 drainage. Patient tolerated well. 01:19 Lakeisha Resendiz MD is Referral Physician. rn 02:00 No provider procedures requiring assistance completed. Patient did not have IV access ed1 during this emergency room visit. Administered Medications: No medications were administered Output: 01:03 Urine: 800ml (Miller); Total: 800ml. ed1 Outcome: 01:19 Discharge ordered by . rn 02:00 Discharged to home via wheelchair, with family. ed1 02:00 Condition: good 02:00 Discharge instructions given to patient, family, Instructed on discharge instructions, follow up and referral plans. Miller care Demonstrated understanding of instructions, follow-up care, miller care 02:01 Patient left the ED. ed1 Signatures: Meghan Villaseñor FNP-C ENVELOPE PRESS OPERATOR-Csnw Tutu Squires MD MD rn Riggs, Erika, RN RN ed1 Sherry Moreland RN RN ak
--- NOTE | 2018-10-10 01:20 | EDPHYS ---
Physician Documentation [facility] Name: Demetrius Hassan Age: 73 yrs Sex: Male : 1945 Arrival Date: 10/10/2018 Time: 00:34 Bed 6 Private MD: ED Physician Tutu Squires HPI: 10/10 00:39 This 73 yrs old Male presents to ER via EMS with complaints of Urinary Problem.rn 00:39 The patient presents with urinary symptoms, retention, unable to void. Onset: The rn symptoms/episode began/occurred this morning. Associated signs and symptoms: Pertinent positives: abdominal pain. Severity of symptoms: At their worst the symptoms were moderate, in the emergency department the symptoms are unchanged. The patient has experienced similar episodes in the past. Reports just had miller catheter removed 2 days ago by urology, had scope, told was a little swollen, urinating ok with weaker than normal stream since then, last urination was this AM, not normal amount but decent, and now unable to urinate, just a few drops, + suprapubic abd pain.. 00:39 Currently taking abx from urologist. . rn Historical: - Allergies: 00:40 No Known Allergies; ed1 - Home Meds: 00:40 benazepril 20 mg Oral tab 1 tab once daily [Active]; carbidopa-levodopa 25-250 mg Oral ed1 tab 0.5 tab twice a day [Active]; diazepam 5 mg Oral tab 2 tabs nightly [Active]; fenofibrate 160 mg Oral tab 1 tab once daily [Active]; Nuplazid 17 mg Oral tab 1 tabs twice a day [Active]; pramipexole 1.5 mg Oral tab 0.5 tab twice a day [Active]; Slow-Mag 71.5 mg Oral TbEC 1 tab daily [Active]; ziprasidone HCl 20 mg Oral cap 1 cap daily [Active]; - PMHx: 00:40 Hypertension; left arm weakness; Parkinsons; ed1 - PSHx: 00:40 left foot; left arm; ed1 - Immunization history:: Adult Immunizations up to date. - Social history:: Smoking status: Patient/guardian denies using tobacco. - Ebola Screening: : Patient negative for fever greater than or equal to 101.5 degrees Fahrenheit, and additional compatible Ebola Virus Disease symptoms Patient denies exposure to infectious person Patient denies travel to an Ebola-affected area in the 21 days before illness onset No symptoms or risks identified at this time. - Family history:: not pertinent. - Hospitalizations: : No recent hospitalization is reported. ROS: 00:39 Constitutional: Negative for fever, chills, and weight loss, Eyes: Negative for injury, rn pain, redness, and discharge, Neck: Negative for injury, pain, and swelling, Cardiovascular: Negative for chest pain, palpitations, and edema, Respiratory: Negative for shortness of breath, cough, wheezing, and pleuritic chest pain, Abdomen/GI: + suprapubic abd pain : Unable to urinate MS/Extremity: Negative for injury and deformity, Skin: Negative for injury, rash, and discoloration, Neuro: Negative for headache, new weakness, numbness, tingling, and seizure. Exam: 00:39 Constitutional: This is a well developed patient groaning in pain Head/Face: rn Normocephalic, atraumatic. ENT: MMM Cardiovascular: tachycardic, regular Respiratory: No increased work of breathing, no retractions or nasal flaring. Abdomen/GI: soft, + fullness suprapubic region with tenderness, no peritoneal signs MS/ Extremity: Pulses equal, no cyanosis. Neurovascular intact. Full, normal range of motion. Equal circumference. Neuro: Awake and alert, GCS 15, oriented to person, place, time, and situation. Moves all 4 extremities, + coarse upper ext tremor. Vital Signs: 00:40 BP 173 / 79; Pulse 103; Resp 24; Temp 98.9(TE); Pulse Ox 96% on R/A; Weight 85.28 kg; ed1 Height 5 ft. 8 in. (172.72 cm); Pain 10/10; 01:13 BP 165 / 78; Pulse 94; Resp 18; Pulse Ox 99% on R/A; Pain 4/10; ed1 00:40 Body Mass Index 28.59 (85.28 kg, 172.72 cm) ed1 MDM: 00:36 Patient medically screened. snw 01:11 Differential diagnosis: urinary retention. Data reviewed: vital signs, nurses notes, rn and as a result, I will discharge patient. Counseling: I had a detailed discussion with the patient and/or guardian regarding: the historical points, exam findings, and any diagnostic results supporting the discharge/admit diagnosis, the need for outpatient follow up, to return to the emergency department if symptoms worsen or persist or if there are any questions or concerns that arise at home. Special discussion: I discussed with the patient/guardian in detail that at this point there is no indication for admission to the hospital. It is understood, however, that if the symptoms persist or worsen the patient needs to return immediately for re-evaluation. ED course: Pain resolved after miller placed, had 800cc urine retained, already on abx from urology, will dc home. . 01:18 ED course: Pt states his family will not pick him up, requesting ambulance ride back rn home, will try family again. . 10/10 00:37 Order name: Bladder Scanner; Complete Time: 01:02 rn 10/10 00:53 Order name: Miller; Complete Time: 01:14 rn 10/10 00:53 Order name: Leg Bag; Complete Time: 01:14 rn Administered Medications: No medications were administered Disposition: 10/10/18 01:19 Discharged to Home. Impression: Retention of urine, unspecified. - Condition is Stable. - Discharge Instructions: Miller Catheter Care, Adult, Acute Urinary Retention, Male. - Medication Reconciliation Form, Thank You Letter, Antibiotic Education, Prescription Opioid Use form. - Follow up: Lakeisha Resendiz MD; When: As needed; Reason: Recheck today's complaints, Re-evaluation by your physician. - Problem is an ongoing problem. - Symptoms have improved. Signatures: Meghan Villaseñor, PEDIATRIC IMMUNOLOGIST-C PEDIATRIC IMMUNOLOGIST-Csnw Tutu Squires MD MD rn Riggs, Erika, RN RN ed1 Corrections: (The following items were deleted from the chart) 00:42 00:39 Constitutional: Negative for fever, chills, and weight loss, rn rn 02:01 01:19 10/10/2018 01:19 Discharged to Home. Impression: Retention of urine, unspecified. ed1 Condition is Stable. Discharge Instructions: Acute Urinary Retention, Male. Forms are Medication Reconciliation Form, Thank You Letter, Antibiotic Education, Prescription Opioid Use. Follow up: Lakeisha Resendiz; When: As needed; Reason: Recheck today's complaints, Re-evaluation by your physician. Problem is an ongoing problem. Symptoms have improved. rn
[2018-10-10 02:08] VITALS: TEMP 98.9
[2018-10-10 02:11] VITALS: BP 165/78; O2SAT 99
--- OUTSIDE RECORDS SUMMARY | 2018-10-10 12:41 | XMS REPORT ---
:1945 Author Organization [facility] Address [address] [place] [address] Dr. Cortes[address] [place] [id number] Care Team Providers Name Role Phone Unavailable Unavailable Unavailable Problems This patient has no known problems. Allergies, Adverse Reactions, Alerts This patient has no known allergies or adverse reactions. Medications This patient has no known medications.
== END 2018-10-10 02:01 | disposition home or self-care (01) ==
LOC: ER 00:33
DX: R33.9 Retention of urine, unspecified (principal)
CPT/HCPCS: 99284